=== PATIENT | female | born 1975 | race Caucasian/White ===

== ENCOUNTER 2017-02-28 10:42 | Inpatient (IN) | payer BC ==
[2017-02-28] MEDS ORDERED: PROVENTIL IH ONE (11:50)
[2017-02-28] MEDS ORDERED: ATROVENT IH ONE (11:50)
[2017-02-28] MEDS ORDERED: DECADRON 20 MG in NACL 0.9% 50 ML IV ONE (11:50)
--- NOTE | 2017-02-28 11:58 | Emergency Department Report ---
ED Shortness of Breath HPI - General Chief Complaint: Upper Respiratory Infection Stated Complaint: LOW O2 SAT Time Seen by Provider: 02/28/17 11:44 Source: patient, EMS Mode of arrival: Stretcher Limitations: No Limitations - History of Present Illness Initial Comments: 41 yo morbidly obese female with c/o shortness of breath for the last 2 weeks. Pt reports mainly coughing for 2 weeks and getting progressively worse to the point that she cannot eat because of the coughing. She c/o leg swelling also. In November 2016, she was given albuterol MDI by her doctor because of wheezing. MD Complaint: cough -: week(s) (2) Severity: moderate Pain Scale: 0 Consistency: constant Improves With: nothing Worsens With: nothing Associated Symptoms: other (lower extremity swelling) Treatments Prior to Arrival: oxygen - Related Data Home Oxygen Therapy: No Home Medications Medication Instructions Recorded Confirmed Last Taken Losartan [Cozaar] 12.5 mg PO QDAY 02/28/17 02/28/17 02/27/17 metFORMIN [Glucophage] 1,000 mg PO BID 02/28/17 02/28/17 02/28/17 Allergies Allergy/AdvReac Type Severity Reaction Status Date / Time No Known Allergies Allergy Verified 02/28/17 11:55 ED Review of Systems ROS: Stated complaint: LOW O2 SAT Other details as noted in HPI Constitutional: denies: chills, fever Eyes: denies: eye pain, eye discharge, vision change ENT: denies: ear pain, throat pain Respiratory: shortness of breath. denies: wheezing Cardiovascular: denies: chest pain, palpitations Endocrine: no symptoms reported Gastrointestinal: denies: abdominal pain, nausea, diarrhea Genitourinary: denies: urgency, dysuria, discharge Musculoskeletal: other (leg swelling). denies: back pain, joint swelling, arthralgia Skin: denies: rash, lesions Neurological: denies: headache, weakness, paresthesias Psychiatric: denies: anxiety, depression Hematological/Lymphatic: denies: easy bleeding, easy bruising ED Past Medical Hx - Past Medical History Previous Medical History?: Yes Hx Hypertension: Yes Hx Diabetes: Yes - Surgical History Past Surgical History?: No - Medications Home Medications: Home Medications Medication Instructions Recorded Confirmed Last Taken Type Losartan [Cozaar] 12.5 mg PO QDAY 02/28/17 02/28/17 02/27/17 History metFORMIN [Glucophage] 1,000 mg PO BID 02/28/17 02/28/17 02/28/17 History ED Physical Exam - General Limitations: No Limitations (mouth breathing), Physical Limitation (pt is morbidly,morbidly obese,difficult to hear lungs and heart sounds) General appearance: alert, in distress - Head Head exam: Present: atraumatic, normocephalic - Eye Eye exam: Present: normal appearance, EOMI. Absent: scleral icterus - ENT ENT exam: Present: mucous membranes moist - Neck Neck exam: Present: normal inspection, full ROM - Respiratory Respiratory exam: Present: normal lung sounds bilaterally - Cardiovascular Cardiovascular Exam: Present: regular rate, normal rhythm - GI/Abdominal GI/Abdominal exam: Present: soft, other (large centripital fat). Absent: distended, tenderness, guarding - Rectal Rectal exam: Present: deferred - Extremities Exam Extremities exam: Present: pedal edema (3 plus pitting edema) ED Course Vital Signs 02/28/17 11:13 Pulse Rate 97 H Respiratory 20 Rate Blood Pressure 154/99 O2 Sat by Pulse 93 Oximetry - ABG Interpretation Ph: 7.325 PCO2: 62.7 PO2: 64.1 Bicarbonate: 32.7 Interpretation: respiratory acidosis (primary uncompensated respiratory acidosis ) ED Medical Decision Making - Lab Data Result diagrams: 02/28/17 13:39 02/28/17 13:39 - Radiology Data Radiology results: report reviewed (cardiomegaly and pulmonary venous congestion , small pleural effusion), image reviewed (cxr: cardiomegaly and pulmonary venous congestion, trace pleural effusion) Critical care time in (mins) excluding proc time.: 30 Critical care attestation.: If time is entered above; I have spent that time in minutes in the direct care of this critically ill patient, excluding procedure time. victoriano Critical Care Time: 30 minutes ED Disposition Clinical Impression: Pleural effusion Dyspnea Qualifiers: Dyspnea type: dyspnea on exertion Qualified Code(s): R06.09 - Other forms of dyspnea CHF (congestive heart failure) Qualifiers: Congestive heart failure type: unspecified congestive heart failure type Congestive heart failure chronicity: acute Qualified Code(s): I50.9 - Heart failure, unspecified Obesity Qualifiers: Obesity type: due to excess calories Serious obesity comorbidity presence: with serious comorbidity Body mass index: BMI 45.0-49.9 Disposition: OP ADMIT IP TO THIS HOSP Is pt being admited?: Yes Does the pt Need Aspirin: No Condition: Serious Referrals: ELSIE JACINTO MD [Primary Care Provider] - 3-5 Days Time of Disposition: 13:16 (case reviewed with dr montoya and he will admit the pt to the hospital)
[2017-02-28 12:23] LABS: Basophils % (Auto) 0.7 % (0.0-1.8); Eosinophils % (Auto) 1.2 % (0.0-4.3); Hemoglobin 18.1 gm/dl (10.1-14.3); Mean Corpuscular HGB Conc 32 % (30-34); Mean Corpuscular Hemoglobin 29 pg (28-32); Mean Corpuscular Volume 91 fl (79-97); Platelet Count 236 K/mm3 (140-440); Red Blood Count 6.22 M/mm3 (3.65-5.03); White Blood Count 9.1 K/mm3 (4.5-11.0)
[2017-02-28 12:32] LABS: Hematocrit 56.7 % (30.3-42.9)
[2017-02-28 12:34] LABS: Anion Gap 16 mmol/L; BUN/Creatinine Ratio 14; Blood Urea Nitrogen 11 mg/dL (7-17); Carbon Dioxide 30 mmol/L (22-30); Glucose 111 mg/dL (65-100); Sodium 142 mmol/L (137-145)
[2017-02-28 12:36] LABS: Creatine Kinase MB 2.4 ng/mL (0.0-4.0)
[2017-02-28 12:38] LABS: Creatine Kinase 100 units/L (30-135)
--- NOTE | 2017-02-28 12:49 | XRay Report ---
ROUTINE CHEST, TWO VIEWS: HISTORY: Hypoxia. Moderate cardiomegaly and pulmonary venous congestion are identified. Trace pleural effusions could be present. There is no evidence for large consolidation, large pleural effusion or pneumothorax. The bony structures are intact. IMPRESSION: Cardiomegaly and pulmonary venous congestion.
[2017-02-28 13:13] LABS: ISTAT Base Excess 7; ISTAT HCO3 32.7; ISTAT PCO2 62.7 (35-45); ISTAT PH 7.325 (7.35-7.45); ISTAT PO2 64 (80-105); ISTAT SO2 90; ISTAT TCO2 35
[2017-02-28] MEDS ORDERED: LASIX IV ONE (13:15)
--- NOTE | 2017-02-28 13:21 | History and Physical Report ---
History of Present Illness Chief complaint: I cant breathe History of present illness: 41 YO Female with MO, HTN, DM, Metabolic Syndrome presents to ED for evaluation. Pt states that she has experienced nonproductive coughing, and shortness of breath for the past 2 weeks, with worsening symptoms over the past 2 days. Pt was seen and evaluated by her PCP and was found to have hypoxemic respiratory failure with oxygen saturation of 88% on room air. EMS notified and patient was transported to [facility] for further care and evaluation. Pt seen and evaluated in ED and found to have Acute REspiratory failure, and was placed on high flow supplemental oxygen, and treated with nebulizer therapy with mild improvement in symptoms. Pt denies fever, chills, CP, Palpitations, NVD, Syncope , prolonged travel/immobility, individual/family history of DVT/PE, productive cough, BRBPR, recent ill contacts, trauma, or sore throat. Past History Past Medical History: diabetes, hypertension, other (Morbid Obesity, Metabolic Syndrome) Past Surgical History: No surgical history, Other (reviewed) Social history: single. denies: smoking, alcohol abuse, prescription drug abuse Family history: no significant family history (reviewed) Medications and Allergies Allergies Allergy/AdvReac Type Severity Reaction Status Date / Time No Known Allergies Allergy Verified 02/28/17 11:55 Home Medications Medication Instructions Recorded Confirmed Last Taken Type Losartan [Cozaar] 12.5 mg PO QDAY 02/28/17 02/28/17 02/27/17 History metFORMIN [Glucophage] 1,000 mg PO BID 02/28/17 02/28/17 02/28/17 History Review of Systems Constitutional: no weight loss, no weight gain, no fever, no chills, no sweats Ears, nose, mouth and throat: no ear pain, no ear discharge, no tinnitis, no decreased hearing, no nose pain Breasts: no change in shape, no swelling, no mass Cardiovascular: shortness of breath, no chest pain, no orthopnea, no palpitations, no rapid/irregular heart beat, no edema, no syncope, no lightheadedness Respiratory: cough, no cough with sputum, no excessive sputum, no hemoptysis Gastrointestinal: no abdominal pain, no nausea, no vomiting, no diarrhea Genitourinary Female: no pelvic pain, no flank pain, no menorrhagia, no dysuria , no urinary frequency, no urgency Rectal: no pain, no incontinence, no bleeding Musculoskeletal: no neck stiffness, no neck pain, no shooting arm pain, no arm numbness/tingling, no low back pain, no shooting leg pain, no leg numbness/ tingling Integumentary: no rash, no pruritis, no redness, no sores, no wounds, no jaundice Neurological: no head injury, no transient paralysis, no paralysis, no weakness , no parathesias, no numbness, no tingling, no seizures, no syncope Psychiatric: no anxiety, no memory loss, no change in sleep habits, no sleep disturbances, no insomnia, no hypersomnia, no change in appetite, no change in libido Endocrine: no cold intolerance, no heat intolerance, no polyphagia, no excessive thirst, no polydipsia, no polyuria, no nocturia, no flushing Hematologic/Lymphatic: no easy bruising, no easy bleeding Allergic/Immunologic: no urticaria, no allergic rhinitis, no wheezing Exam - Constitutional Vitals: Temp Pulse Resp BP Pulse Ox 97 H 20 154/99 93 02/28/17 11:13 02/28/17 11:13 02/28/17 11:13 02/28/17 11:13 General appearance: Present: mild distress, obese - EENT Eyes: Present: PERRL ENT: hearing intact, clear oral mucosa - Neck Neck: Present: supple, normal ROM - Respiratory Respiratory effort: labored Respiratory: bilateral: diminished - Cardiovascular Heart Sounds: Present: S1 & S2. Absent: rub, click - Extremities Extremities: pulses symmetrical, No edema - Abdominal General gastrointestinal: Present: soft, non-tender, non-distended, normal bowel sounds Female genitourinary: Present: normal - Integumentary Integumentary: Present: clear, warm, dry - Musculoskeletal Musculoskeletal: generalized weakness - Psychiatric Psychiatric: appropriate mood/affect, intact judgment & insight - Neurologic Neurologic: CNII-XII intact, moves all extremities Results - Labs CBC & Chem 7: 02/28/17 13:39 02/28/17 12:05 Labs: Abnormal lab results 02/28/17 02/28/17 02/28/17 Range/Units 12:05 12:05 13:12 RBC 6.22 H (3.65-5.03) M/mm3 Hgb 18.1 H (10.1-14.3) gm/dl Hct 56.7 H* (30.3-42.9) % RDW 17.0 H (13.2-15.2) % [place] % (Auto) 7.4 H (0.0-7.3) % POC ABG pH 7.325 L (7.35-7.45) POC ABG pCO2 62.7 H (35-45) POC ABG pO2 64 L (80-105) Glucose 111 H (65-100) mg/dL Assessment and Plan - Patient Problems (1) Acute respiratory failure Current Visit: Yes Status: Acute Plan to address problem: Supplemental oxygen, nebulizer therapy, aspiration precautions, pulmonary toilet , incentive spirometry, (2) Obesity hypoventilation syndrome Current Visit: Yes Status: Acute Plan to address problem: supportive care, supplemental oxygen, NIPPV as clinically indicated, pt counseled regarding increased physical activity, balanced diet, and bariatric surgery (3) HTN (hypertension) Current Visit: Yes Status: Acute Plan to address problem: monitor bp q shift, IV hydralazine prn for systolic above 165 (4) Diabetes Current Visit: Yes Status: Acute Plan to address problem: ADA diet, insulin, accu check, (5) CHF (congestive heart failure) Current Visit: Yes Status: Suspected Qualifiers: Congestive heart failure type: systolic Congestive heart failure chronicity : acute Qualified Code(s): I50.21 - Acute systolic (congestive) heart failure Plan to address problem: Serial cardiac enzymes, ekg, d dimer, remote telemetry, fluid restriction, monitor uop q shift, (6) DVT prophylaxis Current Visit: Yes Status: Acute
[2017-02-28] MEDS ORDERED: ZOFRAN IV PRN (13:32)
[2017-02-28] MEDS ORDERED: DULCOLAX PR PRN (13:32)
[2017-02-28] MEDS ORDERED: PROVENTIL IH PRN (13:32)
[2017-02-28] MEDS ORDERED: MILK OF MAGNESIA PO PRN (13:32)
[2017-02-28] MEDS ORDERED: SODIUM CHLORIDE FLUSH SYRINGE 10 ML IV PRN (13:34)
[2017-02-28] MEDS ORDERED: D50W (25GM) Syringe IV PRN (13:36)
[2017-02-28 13:51] LABS: Basophils % (Auto) 0.6 % (0.0-1.8); Eosinophils % (Auto) 1.2 % (0.0-4.3); Mean Corpuscular HGB Conc 32 % (30-34); Mean Corpuscular Hemoglobin 29 pg (28-32); Mean Corpuscular Volume 91 fl (79-97); Platelet Count 227 K/mm3 (140-440); Red Blood Count 6.11 M/mm3 (3.65-5.03); Red Cell Distribution Width 16.7 % (13.2-15.2); White Blood Count 9.1 K/mm3 (4.5-11.0)
[2017-02-28 14:13] LABS: Anion Gap 16 mmol/L; BUN/Creatinine Ratio 16; Blood Urea Nitrogen 11 mg/dL (7-17); Calcium 9.2 mg/dL (8.4-10.2); Carbon Dioxide 30 mmol/L (22-30); Glucose 109 mg/dL (65-100); Potassium 4.1 mmol/L (3.6-5.0); Sodium 143 mmol/L (137-145)
[2017-02-28 14:25] LABS: Hematocrit 55.4 % (30.3-42.9)
[2017-02-28] MEDS ORDERED: LASIX ONE (15:17)
[2017-02-28] MEDS: NOVOLOG SUB-Q SCH ×2 (17:50→22:29)
[2017-02-28] MEDS: APRESOLINE IV PRN (20:52)
[2017-02-28] MEDS: TYLENOL PO PRN (20:52)
--- NOTE | 2017-02-28 22:18 | Cat Scan Report ---
FINAL REPORT PROCEDURE: CT HEAD/BRAIN WO CON TECHNIQUE: Computerized tomography of the head was performed without contrast material. HISTORY: hEADACHE COMPARISON: No prior studies are available for comparison. FINDINGS: Skull and scalp: Normal. Paranasal sinuses: Normal. Ventricles and subarachnoid spaces: Normal. Cerebrum: No evidence of hemorrhage, acute infarction or mass . Cerebellum and brainstem: No evidence of hemorrhage, acute infarction or mass. Vasculature: Normal. Comments: None. IMPRESSION: Normal Examination
[2017-03-01] MEDS: APRESOLINE IV PRN (04:29)
[2017-03-01] MEDS ORDERED: DEEP SEA NS PRN (04:39)
[2017-03-01] MEDS: NOVOLOG SUB-Q SCH ×4 (08:34→22:58)
[2017-03-01] MEDS ORDERED: NACL ONE (09:24)
--- NOTE | 2017-03-01 10:16 | Cat Scan Report ---
CTA CHEST: HISTORY: Hypoxia. COMPARISON: none. TECHNIQUE: Helical CT in 1.25mm intervals following IV contrast. Pulmonary embolus protocol. Sagittal and coronal reformatted images. Rotational MIP images. FINDINGS: Contrast bolus is satisfactory. No pulmonary embolus is identified. Thyroid gland: Normal. Tracheobronchial tree: Normal. Esophagus: Normal. Heart: Mild cardiomegaly and mild central pulmonary venous congestion are identified. Pericardium: Normal. Mediastinum: Normal. Lung Bae: Within normal limits. Minor segmental atelectasis in the left lower lobe is noted. Pleural Spaces: Normal. Musculoskeletal: Normal. IMPRESSION: No evidence for pulmonary embolus. Mild cardiomegaly and pulmonary venous congestion but no CHF
[2017-03-01] MEDS: COZAAR PO SCH (10:29)
[2017-03-01] MEDS: LASIX IV SCH (11:52)
--- NOTE | 2017-03-01 12:18 | Consultation ---
History of Present Illness Consult date: 03/01/17 Requesting physician: ARIANNA PETER Reason for consult: hypoxemia History of present illness: Morbidly obese 41 y/o admitted with hypoxemia. Came to ED to be evaluated for cough. Per patient followed at [facility]. Was given an asthma pump earlier this year which has been using more frequently. patient currently on ventimask. Has never been tested for JAS. has several risk factors. Past History Past Medical History: diabetes, hypertension, other (Morbid Obesity, Metabolic Syndrome) Past Surgical History: No surgical history, Other (reviewed) Social history: single. denies: smoking, alcohol abuse, prescription drug abuse Family history: no significant family history (reviewed) Medications and Allergies Allergies Allergy/AdvReac Type Severity Reaction Status Date / Time No Known Allergies Allergy Verified 02/28/17 11:55 Home Medications Medication Instructions Recorded Confirmed Last Taken Type Losartan [Cozaar] 12.5 mg PO QDAY 02/28/17 02/28/17 02/27/17 History metFORMIN [Glucophage] 1,000 mg PO BID 02/28/17 02/28/17 02/28/17 History Active Meds: Active Medications Acetaminophen (Tylenol) 650 mg PO Q4H PRN PRN Reason: Pain MILD(1-3)/Fever >100.5/THOMPSON Last Admin: 02/28/17 20:52 Dose: 650 mg Albuterol (Proventil) 2.5 mg IH Q4HRT PRN PRN Reason: Shortness Of Breath Bisacodyl (Dulcolax) 10 mg [place] QDAY PRN PRN Reason: Constipation unrelieved by MOM Dextrose (D50w (25gm) Syringe) 50 ml IV PRN PRN PRN Reason: Hypoglycemia Furosemide (Lasix) 40 mg IV QDAY [facility] Last Admin: 03/01/17 11:52 Dose: 40 mg Hydralazine HCl (Apresoline) 10 mg IV Q6HR PRN PRN Reason: Blood Pressure Last Admin: 03/01/17 04:29 Dose: 10 mg Insulin Aspart (Novolog) 0 units SUB-Q ACHS NEIL PRN Reason: Protocol Last Admin: 03/01/17 11:52 Dose: 2 units Losartan Potassium (Cozaar) 12.5 mg PO QDAY [facility] Last Admin: 03/01/17 10:29 Dose: 12.5 mg Magnesium Hydroxide (Milk Of Magnesia) 30 ml PO Q4H PRN PRN Reason: Constipation Ondansetron HCl (Zofran) 4 mg IV Q8H PRN PRN Reason: N/V unrelieved by Reglan Sodium Chloride (Sodium Chloride Flush Syringe 10 Ml) 10 ml IV PRN PRN PRN Reason: LINE FLUSH Sodium Chloride (Deep Sea) 2 spray NS PRN PRN PRN Reason: Dry Nasal Passages Review of Systems All systems: negative Physical Examination Vital signs: Vital Signs Pulse Resp BP Pulse Ox 97 H 20 154/99 93 02/28/17 11:13 02/28/17 11:13 02/28/17 11:13 02/28/17 11:13 General appearance: no acute distress, alert, other (morbidly obese) Eyes: non-icteric ENT: oropharynx moist Neck: supple Effort: normal Ascultation: Bilateral: diminished breath sounds Percussion: Bilateral: not dull Tactile fremitus: Bilateral: normal Cardiovascular: regular rate and rhythm Gastrointestinal: normoactive bowel sounds, soft, other (obese) Extremities: edema normal mental status, non-focal exam mood appropriate, affect normal Results - Laboratory Findings CBC and BMP: 03/02/17 05:38 03/02/17 05:38 ABG POC ABG pH 7.325 (7.35-7.45) L 02/28/17 13:12 POC ABG pCO2 62.7 (35-45) H 02/28/17 13:12 POC ABG pO2 64 (80-105) L 02/28/17 13:12 POC ABG HCO3 32.7 02/28/17 13:12 POC ABG Total CO2 35 02/28/17 13:12 POC ABG O2 Sat 90 02/28/17 13:12 PT/INR, D-dimer D-Dimer 265.06 ng/mlDDU (0-234) H 02/28/17 13:35 Abnormal lab findings: Abnormal Labs 02/28/17 02/28/17 02/28/17 12:05 12:05 13:12 RBC 6.22 H Hgb 18.1 H Hct 56.7 H* RDW 17.0 H [place] % (Auto) 7.4 H Seg Neutrophils % D-Dimer POC ABG pH 7.325 L POC ABG pCO2 62.7 H POC ABG pO2 64 L Glucose 111 H POC Glucose 02/28/17 02/28/17 02/28/17 13:35 13:39 13:39 RBC 6.11 H Hgb 18.0 H Hct 55.4 H* RDW 16.7 H [place] % (Auto) Seg Neutrophils % 70.5 H D-Dimer 265.06 H POC ABG pH POC ABG pCO2 POC ABG pO2 Glucose 109 H POC Glucose 02/28/17 02/28/17 02/28/17 14:12 16:58 21:34 RBC Hgb Hct RDW [place] % (Auto) Seg Neutrophils % D-Dimer POC ABG pH POC ABG pCO2 POC ABG pO2 Glucose POC Glucose 110 H 152 H 286 H 03/01/17 03/01/17 03/01/17 05:06 06:39 11:40 RBC Hgb Hct RDW [place] % (Auto) Seg Neutrophils % D-Dimer POC ABG pH POC ABG pCO2 POC ABG pO2 Glucose POC Glucose 142 H 142 H 171 H - Diagnostic Findings Chest x-ray: image reviewed CT scan - chest: image reviewed Assessment and Plan 41 y/o female with hypoxic respiratory failure, morbidly obese and probable pulmonary hypertension from untreated sleep apnea. 1. Needs outpatient PSG, will arrange follow up for our office with Dr. Soler 2. Also needs full PFT with Lung Volumes and DLCO 3. Wean mask for sats greater than 88% 4. BP control and afterload reduction 5. Agree with lasix therapy. 6. continue PRN nebs.
--- NOTE | 2017-03-01 16:03 | Progress Note ---
Assessment and Plan Assessment and plan: (1) Acute respiratory failure - Oxygen support, nebulizer treatment - Pulmonary consulted - CTA negative for PE, shows chest congestion (2) Obesity hypoventilation syndrome - Supportive care, advised for weight loss, bariatric surgery (3) HTN (hypertension) - When necessary hydralazine (4) Diabetes - ADA diet, insulin, accu check, (5) CHF (congestive heart failure) - EF is normal - Dilated right atrial and right ventricular - On IV Lasix (6) DVT prophylaxis - on lovenox Disposition - Patient will be managed overnight and, discharged tomorrow History Interval history: Patient was seen and evaluated this morning, patient is on nonrebreather mask. No chest pain. Hospitalist Physical - Physical exam Narrative exam: Not in cardiopulmonary distress. The patient is morbidly obese. Vital signs as documented. Head exam is unremarkable. No scleral icterus . Neck is without jugular venous distension, thyromegaly, or carotid bruits. Lungs are clear to auscultation. Cardiac exam reveals regular rate and Rhythm. First and second heart sounds normal. No murmurs, rubs or gallops. Abdominal exam reveals normal bowel sounds, no masses, no organomegaly and no aortic enlargement. Extremities are nonedematous and both femoral and pedal pulses are normal. [employer]: Alert and oriented 3. No focal weakness. - Constitutional Vitals: Temp Pulse Resp BP Pulse Ox 98.3 F 97 H 24 118/68 98 03/01/17 11:37 03/01/17 11:37 03/01/17 11:37 03/01/17 11:37 03/01/17 11:37 General appearance: Present: mild distress, obese Results - Labs CBC & Chem 7: 02/28/17 13:39 02/28/17 13:39 Labs: Laboratory Last Values WBC 9.1 K/mm3 (4.5-11.0) 02/28/17 13:39 RBC 6.11 M/mm3 (3.65-5.03) H 02/28/17 13:39 Hgb 18.0 gm/dl (10.1-14.3) H 02/28/17 13:39 Hct 55.4 % (30.3-42.9) H* 02/28/17 13:39 MCV 91 fl (79-97) 02/28/17 13:39 MCH 29 pg (28-32) 02/28/17 13:39 MCHC 32 % (30-34) 02/28/17 13:39 RDW 16.7 % (13.2-15.2) H 02/28/17 13:39 Plt Count 227 K/mm3 (140-440) 02/28/17 13:39 Lymph % (Auto) 21.7 % (13.4-35.0) 02/28/17 13:39 [place] % (Auto) 6.0 % (0.0-7.3) 02/28/17 13:39 Eos % (Auto) 1.2 % (0.0-4.3) 02/28/17 13:39 Baso % (Auto) 0.6 % (0.0-1.8) 02/28/17 13:39 Lymph # 2.0 K/mm3 (1.2-5.4) 02/28/17 13:39 [place] # 0.5 K/mm3 (0.0-0.8) 02/28/17 13:39 Eos # 0.1 K/mm3 (0.0-0.4) 02/28/17 13:39 Baso # 0.1 K/mm3 (0.0-0.1) 02/28/17 13:39 Seg Neutrophils % 70.5 % (40.0-70.0) H 02/28/17 13:39 Seg Neutrophils # 6.4 K/mm3 (1.8-7.7) 02/28/17 13:39 D-Dimer 265.06 ng/mlDDU (0-234) H 02/28/17 13:35 POC ABG pH 7.325 (7.35-7.45) L 02/28/17 13:12 POC ABG pCO2 62.7 (35-45) H 02/28/17 13:12 POC ABG pO2 64 (80-105) L 02/28/17 13:12 POC ABG HCO3 32.7 02/28/17 13:12 POC ABG Total CO2 35 02/28/17 13:12 POC ABG O2 Sat 90 02/28/17 13:12 POC ABG Base Excess 7 02/28/17 13:12 FiO2 32 % 02/28/17 13:12 Sodium 143 mmol/L (137-145) 02/28/17 13:39 Potassium 4.1 mmol/L (3.6-5.0) 02/28/17 13:39 Chloride 101.0 mmol/L (98-107) 02/28/17 13:39 Carbon Dioxide 30 mmol/L (22-30) 02/28/17 13:39 Anion Gap 16 mmol/L 02/28/17 13:39 BUN 11 mg/dL (7-17) 02/28/17 13:39 Creatinine 0.7 mg/dL (0.7-1.2) 02/28/17 13:39 Estimated GFR > 60 ml/min 02/28/17 13:39 BUN/Creatinine Ratio 16 % 02/28/17 13:39 Glucose 109 mg/dL (65-100) H 02/28/17 13:39 POC Glucose 171 (70-105) H 03/01/17 11:40 Calcium 9.2 mg/dL (8.4-10.2) 02/28/17 13:39 Total Creatine Kinase 100 units/L (30-135) 02/28/17 12:05 CK-MB (CK-2) 2.4 ng/mL (0.0-4.0) 02/28/17 12:05 CK-MB (CK-2) Rel Index 2.4 (0-4) 02/28/17 12:05 Troponin T < 0.010 ng/mL (0.00-0.029) 02/28/17 19:35 NT-Pro-B Natriuret Pep 412.9 pg/mL (0-450) 02/28/17 12:05 TSH 1.810 mlU/mL (0.270-4.200) 02/28/17 12:13 Free T4 1.18 ng/dL (0.76-1.46) 02/28/17 12:13 HCG, Qual Negative (Negative) 02/28/17 12:00 - Imaging and Cardiology CT scan - chest: report reviewed (negative for PE) CT Scan - head: report reviewed (normal)
[2017-03-02] MEDS: TYLENOL PO PRN ×2 (03:35→09:37)
[2017-03-02 06:38] LABS: Basophils % (Auto) 0.2 % (0.0-1.8); Eosinophils % (Auto) 0.3 % (0.0-4.3); Hematocrit 54.1 % (30.3-42.9); Hemoglobin 17.3 gm/dl (10.1-14.3); Mean Corpuscular HGB Conc 32 % (30-34); Mean Corpuscular Hemoglobin 29 pg (28-32); Mean Corpuscular Volume 92 fl (79-97); Platelet Count 232 K/mm3 (140-440); Red Blood Count 5.89 M/mm3 (3.65-5.03); Red Cell Distribution Width 17.4 % (13.2-15.2); White Blood Count 10.3 K/mm3 (4.5-11.0)
[2017-03-02 06:46] LABS: Anion Gap 15 mmol/L; BUN/Creatinine Ratio 21; Blood Urea Nitrogen 15 mg/dL (7-17); Calcium 8.5 mg/dL (8.4-10.2); Carbon Dioxide 33 mmol/L (22-30); Chloride 101.3 mmol/L (98-107); Glucose 121 mg/dL (65-100); Potassium 4.3 mmol/L (3.6-5.0); Sodium 145 mmol/L (137-145)
[2017-03-02] MEDS: NOVOLOG SUB-Q SCH ×4 (07:36→22:53)
[2017-03-02] MEDS: COZAAR PO SCH (09:17)
[2017-03-02] MEDS: LASIX IV SCH ×2 (09:17→19:03)
--- NOTE | 2017-03-02 13:05 | Progress Note ---
Assessment and Plan 41 y/o female with hypoxic respiratory failure, morbidly obese and probable pulmonary hypertension from untreated sleep apnea. No new recs for today. 1. Needs outpatient PSG, will arrange follow up for our office with Dr. Soler 2. Also needs full PFT with Lung Volumes and DLCO 3. Wean mask for sats greater than 88% 4. BP control and afterload reduction 5. Agree with lasix therapy. 6. continue PRN nebs. Subjective Date of service: 03/02/17 Interval history: No acute events. Breathing feels the same. Has a slight headache today. Objective Vital Signs - 12hr 03/02/17 03/02/17 03/02/17 03:27 03:35 07:00 Temperature 98.3 F Pulse Rate 92 H Respiratory 18 24 18 Rate Blood Pressure 142/68 O2 Sat by Pulse 98 Oximetry 03/02/17 03/02/17 03/02/17 09:17 09:37 10:00 Temperature Pulse Rate Respiratory 20 Rate Blood Pressure 110/41 O2 Sat by Pulse 95 Oximetry 03/02/17 10:37 Temperature Pulse Rate Respiratory 20 Rate Blood Pressure O2 Sat by Pulse Oximetry Constitutional: no acute distress, alert, other (morbidly obese) Eyes: non-icteric ENT: oropharynx moist Neck: supple Effort: normal Ascultation: Bilateral: diminished breath sounds Percussion: Bilateral: not dull Tactile fremitus: Bilateral: normal Cardiovascular: regular rate and rhythm Gastrointestinal: normoactive bowel sounds, soft, other (obese) Extremities: edema Neurologic: normal mental status, non-focal exam Psychiatric: mood appropriate, affect normal CBC and BMP: 03/02/17 05:38 03/02/17 05:38 ABG, PT/INR, D-dimer: ABG POC ABG pH 7.325 (7.35-7.45) L 02/28/17 13:12 POC ABG pCO2 62.7 (35-45) H 02/28/17 13:12 POC ABG pO2 64 (80-105) L 02/28/17 13:12 POC ABG HCO3 32.7 02/28/17 13:12 POC ABG Total CO2 35 02/28/17 13:12 POC ABG O2 Sat 90 02/28/17 13:12 PT/INR, D-dimer D-Dimer 265.06 ng/mlDDU (0-234) H 02/28/17 13:35 Abnormal lab findings: Abnormal Labs 02/28/17 02/28/17 02/28/17 12:05 12:05 13:12 RBC 6.22 H Hgb 18.1 H Hct 56.7 H* RDW 17.0 H [place] % (Auto) 7.4 H Seg Neutrophils % D-Dimer POC ABG pH 7.325 L POC ABG pCO2 62.7 H POC ABG pO2 64 L Carbon Dioxide Glucose 111 H POC Glucose 02/28/17 02/28/17 02/28/17 13:35 13:39 13:39 RBC 6.11 H Hgb 18.0 H Hct 55.4 H* RDW 16.7 H [place] % (Auto) Seg Neutrophils % 70.5 H D-Dimer 265.06 H POC ABG pH POC ABG pCO2 POC ABG pO2 Carbon Dioxide Glucose 109 H POC Glucose 02/28/17 02/28/17 02/28/17 14:12 16:58 21:34 RBC Hgb Hct RDW [place] % (Auto) Seg Neutrophils % D-Dimer POC ABG pH POC ABG pCO2 POC ABG pO2 Carbon Dioxide Glucose POC Glucose 110 H 152 H 286 H 03/01/17 03/01/17 03/01/17 05:06 06:39 11:40 RBC Hgb Hct RDW [place] % (Auto) Seg Neutrophils % D-Dimer POC ABG pH POC ABG pCO2 POC ABG pO2 Carbon Dioxide Glucose POC Glucose 142 H 142 H 171 H 03/01/17 03/02/17 03/02/17 19:48 05:15 05:38 RBC 5.89 H Hgb 17.3 H Hct 54.1 H RDW 17.4 H [place] % (Auto) 7.9 H Seg Neutrophils % 70.8 H D-Dimer POC ABG pH POC ABG pCO2 POC ABG pO2 Carbon Dioxide Glucose POC Glucose 216 H 106 H 03/02/17 03/02/17 05:38 11:32 RBC Hgb Hct RDW [place] % (Auto) Seg Neutrophils % D-Dimer POC ABG pH POC ABG pCO2 POC ABG pO2 Carbon Dioxide 33 H Glucose 121 H POC Glucose 120 H
--- NOTE | 2017-03-02 16:38 | Progress Note ---
Assessment and Plan Assessment and plan: (1) Acute respiratory failure - Oxygen support, nebulizer treatment, lasix - Pulmonary consulted - CTA negative for PE, shows chest congestion - Patient was desaturating when she is off the Ventimask, we went her on intranasal oxygen, if patient is saturating above 88% we will discharge her. (2) Obesity hypoventilation syndrome - Supportive care, advised for weight loss, bariatric surgery (3) HTN (hypertension) - When necessary hydralazine (4) Diabetes - ADA diet, insulin, accu check, (5) CHF (congestive heart failure) - EF is normal - Dilated right atrial and right ventricular - On IV Lasix (6) DVT prophylaxis - on lovenox Disposition - Patient will be managed overnight and, discharged tomorrow with home o2. History Interval history: Patient was seen and evaluated this morning, patient is on Ventimask. When she is off the ventimask she was desaturating to 72% when moving, and in the low 80' s when sitting. Hospitalist Physical - Physical exam Narrative exam: Not in cardiopulmonary distress. The patient is morbidly obese. Vital signs as documented. Head exam is unremarkable. No scleral icterus . Neck is without jugular venous distension, thyromegaly, or carotid bruits. Lungs are clear to auscultation. Cardiac exam reveals regular rate and Rhythm. First and second heart sounds normal. No murmurs, rubs or gallops. Abdominal exam reveals normal bowel sounds, no masses, no organomegaly and no aortic enlargement. Extremities are nonedematous and both femoral and pedal pulses are normal. 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 No focal weakness. - Constitutional Vitals: Temp Pulse Resp BP Pulse Ox 98.5 F 90 20 134/82 94 03/02/17 15:16 03/02/17 15:16 03/02/17 15:16 03/02/17 15:16 03/02/17 15:16 General appearance: Present: mild distress, obese Results - Labs CBC & Chem 7: 03/02/17 05:38 03/02/17 05:38 Labs: Laboratory Last Values WBC 10.3 K/mm3 (4.5-11.0) 03/02/17 05:38 RBC 5.89 M/mm3 (3.65-5.03) H 03/02/17 05:38 Hgb 17.3 gm/dl (10.1-14.3) H 03/02/17 05:38 Hct 54.1 % (30.3-42.9) H 03/02/17 05:38 MCV 92 fl (79-97) 03/02/17 05:38 MCH 29 pg (28-32) 03/02/17 05:38 MCHC 32 % (30-34) 03/02/17 05:38 RDW 17.4 % (13.2-15.2) H 03/02/17 05:38 Plt Count 232 K/mm3 (140-440) 03/02/17 05:38 Lymph % (Auto) 20.8 % (13.4-35.0) 03/02/17 05:38 [place] % (Auto) 7.9 % (0.0-7.3) H 03/02/17 05:38 Eos % (Auto) 0.3 % (0.0-4.3) 03/02/17 05:38 Baso % (Auto) 0.2 % (0.0-1.8) 03/02/17 05:38 Lymph # 2.1 K/mm3 (1.2-5.4) 03/02/17 05:38 [place] # 0.8 K/mm3 (0.0-0.8) 03/02/17 05:38 Eos # 0.0 K/mm3 (0.0-0.4) 03/02/17 05:38 Baso # 0.0 K/mm3 (0.0-0.1) 03/02/17 05:38 Seg Neutrophils % 70.8 % (40.0-70.0) H 03/02/17 05:38 Seg Neutrophils # 7.3 K/mm3 (1.8-7.7) 03/02/17 05:38 D-Dimer 265.06 ng/mlDDU (0-234) H 02/28/17 13:35 POC ABG pH 7.325 (7.35-7.45) L 02/28/17 13:12 POC ABG pCO2 62.7 (35-45) H 02/28/17 13:12 POC ABG pO2 64 (80-105) L 02/28/17 13:12 POC ABG HCO3 32.7 02/28/17 13:12 POC ABG Total CO2 35 02/28/17 13:12 POC ABG O2 Sat 90 02/28/17 13:12 POC ABG Base Excess 7 02/28/17 13:12 FiO2 32 % 02/28/17 13:12 Sodium 145 mmol/L (137-145) 03/02/17 05:38 Potassium 4.3 mmol/L (3.6-5.0) 03/02/17 05:38 Chloride 101.3 mmol/L (98-107) 03/02/17 05:38 Carbon Dioxide 33 mmol/L (22-30) H 03/02/17 05:38 Anion Gap 15 mmol/L 03/02/17 05:38 BUN 15 mg/dL (7-17) 03/02/17 05:38 Creatinine 0.7 mg/dL (0.7-1.2) 03/02/17 05:38 Estimated GFR > 60 ml/min 03/02/17 05:38 BUN/Creatinine Ratio 21 % 03/02/17 05:38 Glucose 121 mg/dL (65-100) H 03/02/17 05:38 POC Glucose 115 (70-105) H 03/02/17 16:29 Calcium 8.5 mg/dL (8.4-10.2) 03/02/17 05:38 Total Creatine Kinase 100 units/L (30-135) 02/28/17 12:05 CK-MB (CK-2) 2.4 ng/mL (0.0-4.0) 02/28/17 12:05 CK-MB (CK-2) Rel Index 2.4 (0-4) 02/28/17 12:05 Troponin T < 0.010 ng/mL (0.00-0.029) 02/28/17 19:35 NT-Pro-B Natriuret Pep 412.9 pg/mL (0-450) 02/28/17 12:05 TSH 1.810 mlU/mL (0.270-4.200) 02/28/17 12:13 Free T4 1.18 ng/dL (0.76-1.46) 02/28/17 12:13 HCG, Qual Negative (Negative) 02/28/17 12:00
[2017-03-03 05:26] LABS: Anion Gap 15 mmol/L; BUN/Creatinine Ratio 21; Blood Urea Nitrogen 15 mg/dL (7-17); Calcium 8.9 mg/dL (8.4-10.2); Carbon Dioxide 37 mmol/L (22-30); Chloride 96.7 mmol/L (98-107); Glucose 123 mg/dL (65-100); Potassium 4.2 mmol/L (3.6-5.0); Sodium 144 mmol/L (137-145)
[2017-03-03] MEDS: LASIX IV SCH ×2 (06:16→17:24)
[2017-03-03] MEDS: NOVOLOG SUB-Q SCH ×3 (07:30→17:46)
--- NOTE | 2017-03-03 08:09 | Discharge Summary ---
Providers - Providers Date of Admission: 02/28/17 13:32 Date of discharge: 03/03/17 Attending physician: ARIANNA PETER MD 02/28/17 Consult to Cardiac Rehabilitation [CONS] Routine Reason For Exam: Phase I 03/01/17 07:29 Consult to Physician [CONS] Routine Consulting Provider: RAZIA ROGER Reason For Exam: respiratory failure, [facility] Place consult to:: Pulmonary Notified:: yes Phone number called:: [phone] Was contact made?: Yes Primary care physician: ELSIE JACINTO Hospitalization Reason for admission: acute hypoxic respiratory failure, obesity hypoventilation syndrome Condition: Serious Pertinent studies: CTA chest negative for PE Echo pulmonary hypertension Hospital course: 41 YO Female with MO, HTN, DM, Metabolic Syndrome presents to ED for evaluation. Pt states that she has experienced nonproductive coughing, and shortness of breath for the past 2 weeks, with worsening symptoms over the past 2 days. Pt was seen and evaluated by her PCP and was found to have hypoxemic respiratory failure with oxygen saturation of 88% on room air. EMS notified and patient was transported to [facility] for further care and evaluation. Pt seen and evaluated in ED and found to have Acute REspiratory failure, and was placed on high flow supplemental oxygen, and treated with nebulizer therapy with mild improvement in symptoms. Pt denies fever, chills, CP, Palpitations, NVD, Syncope , prolonged travel/immobility, individual/family history of DVT/PE, productive cough, BRBPR, recent ill contacts, trauma, or sore throat. Patient was admitted and she was desaturating and was on non-rebreather mask. Patient was managed wit lasix with clive improvement. Pulmonary was consulted and recommmend to discharge the patient with home O2 with a goal of 88 % saturation and have follow up with pulmonary as an O/P for sleep study and further management. Patient was discharged home with home O2 amd lasix. patient was saturating in the low90's with 3-4 Litres of O2. patient was hemodynamically stable at the time of discharge. Disposition: - TO HOME OR SELFCARE Time spent for discharge: 31 minutes - Discharge Diagnoses (1) Acute respiratory failure Status: Acute (2) Dyspnea Status: Acute Qualifiers: Dyspnea type: dyspnea on exertion Qualified Code(s): R06.09 - Other forms of dyspnea (3) HTN (hypertension) Status: Acute (4) Obesity Status: Acute Qualifiers: Obesity type: due to excess calories Serious obesity comorbidity presence: with serious comorbidity Body mass index: BMI 45.0-49.9 (5) Obesity hypoventilation syndrome Status: Acute Core Measure Documentation - Palliative Care Palliative Care/ Comfort Measures: Not Applicable - Core Measures Any of the following diagnoses?: none Exam - Physical Exam Narrative exam: Not in cardiopulmonary distress. The patient is morbidly obese. Vital signs as documented. Head exam is unremarkable. No scleral icterus . Neck is without jugular venous distension, thyromegaly, or carotid bruits. Lungs are clear to auscultation. Cardiac exam reveals regular rate and Rhythm. First and second heart sounds normal. No murmurs, rubs or gallops. Abdominal exam reveals normal bowel sounds, no masses, no organomegaly and no aortic enlargement. Extremities are nonedematous and both femoral and pedal pulses are normal. 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 No focal weakness. - Constitutional Vitals: Temp Pulse Resp BP Pulse Ox 98.1 F 94 H 22 127/66 94 03/03/17 05:03 03/03/17 05:03 03/03/17 05:03 03/03/17 05:03 03/03/17 05:03 Plan Activity: no restrictions Weight Bearing Status: Full Weight Bearing Diet: low fat, low cholesterol, low salt, diabetic Follow up with: ELSIE JACINTO MD [Primary Care Provider] - 7 Days GRICEL DUMONT MD [Staff Physician] - 7 Days Forms: Work/School Release Form Prescriptions: Furosemide [Lasix] 40 mg PO DAILY #30 tablet Other Discharge Orders: Oxygen (Amb) Location: Determined By Patient
--- NOTE | 2017-03-03 09:20 | Progress Note ---
Assessment and Plan 41 y/o female with hypoxic respiratory failure, morbidly obese and probable pulmonary hypertension from untreated sleep apnea. Needs 6 minute walk to assess oxygen need. Same follow up as outlined below. 1. Needs outpatient PSG, will arrange follow up for our office with Dr. Soler 2. Also needs full PFT with Lung Volumes and DLCO 3. Wean mask for sats greater than 88% 4. BP control and afterload reduction 5. Agree with lasix therapy. 6. continue PRN nebs. Subjective Date of service: 03/03/17 Interval history: Lasix at BID but I/O not accurate/strict. IMS with discharge in place. Last documented sat on 50% venti was 92 Objective Vital Signs - 12hr 03/02/17 03/03/17 03/03/17 22:00 00:01 02:35 Temperature Pulse Rate 104 H 95 H Pulse Rate [ 98 H Left Radial] Respiratory 24 20 Rate Blood Pressure O2 Sat by Pulse 95 90 94 Oximetry 03/03/17 05:03 Temperature 98.1 F Pulse Rate 94 H Pulse Rate [ Left Radial] Respiratory 22 Rate Blood Pressure 127/66 O2 Sat by Pulse 94 Oximetry Constitutional: no acute distress, alert, other (morbidly obese) Eyes: non-icteric ENT: oropharynx moist Neck: supple Effort: normal Ascultation: Bilateral: diminished breath sounds Percussion: Bilateral: not dull Tactile fremitus: Bilateral: normal Cardiovascular: regular rate and rhythm Gastrointestinal: normoactive bowel sounds, soft, other (obese) Extremities: edema Neurologic: normal mental status, non-focal exam Psychiatric: mood appropriate, affect normal CBC and BMP: 03/02/17 05:38 03/03/17 04:02 ABG, PT/INR, D-dimer: ABG POC ABG pH 7.325 (7.35-7.45) L 02/28/17 13:12 POC ABG pCO2 62.7 (35-45) H 02/28/17 13:12 POC ABG pO2 64 (80-105) L 02/28/17 13:12 POC ABG HCO3 32.7 02/28/17 13:12 POC ABG Total CO2 35 02/28/17 13:12 POC ABG O2 Sat 90 02/28/17 13:12 PT/INR, D-dimer D-Dimer 265.06 ng/mlDDU (0-234) H 02/28/17 13:35 Abnormal lab findings: Abnormal Labs 02/28/17 02/28/17 02/28/17 12:05 12:05 13:12 RBC 6.22 H Hgb 18.1 H Hct 56.7 H* RDW 17.0 H [place] % (Auto) 7.4 H Seg Neutrophils % D-Dimer POC ABG pH 7.325 L POC ABG pCO2 62.7 H POC ABG pO2 64 L Chloride Carbon Dioxide Glucose 111 H POC Glucose 02/28/17 02/28/17 02/28/17 13:35 13:39 13:39 RBC 6.11 H Hgb 18.0 H Hct 55.4 H* RDW 16.7 H [place] % (Auto) Seg Neutrophils % 70.5 H D-Dimer 265.06 H POC ABG pH POC ABG pCO2 POC ABG pO2 Chloride Carbon Dioxide Glucose 109 H POC Glucose 02/28/17 02/28/17 02/28/17 14:12 16:58 21:34 RBC Hgb Hct RDW [place] % (Auto) Seg Neutrophils % D-Dimer POC ABG pH POC ABG pCO2 POC ABG pO2 Chloride Carbon Dioxide Glucose POC Glucose 110 H 152 H 286 H 03/01/17 03/01/17 03/01/17 05:06 06:39 11:40 RBC Hgb Hct RDW [place] % (Auto) Seg Neutrophils % D-Dimer POC ABG pH POC ABG pCO2 POC ABG pO2 Chloride Carbon Dioxide Glucose POC Glucose 142 H 142 H 171 H 03/01/17 03/02/17 03/02/17 19:48 05:15 05:38 RBC 5.89 H Hgb 17.3 H Hct 54.1 H RDW 17.4 H [place] % (Auto) 7.9 H Seg Neutrophils % 70.8 H D-Dimer POC ABG pH POC ABG pCO2 POC ABG pO2 Chloride Carbon Dioxide Glucose POC Glucose 216 H 106 H 03/02/17 03/02/17 03/02/17 05:38 11:32 16:29 RBC Hgb Hct RDW [place] % (Auto) Seg Neutrophils % D-Dimer POC ABG pH POC ABG pCO2 POC ABG pO2 Chloride Carbon Dioxide 33 H Glucose 121 H POC Glucose 120 H 115 H 03/03/17 04:02 RBC Hgb Hct RDW [place] % (Auto) Seg Neutrophils % D-Dimer POC ABG pH POC ABG pCO2 POC ABG pO2 Chloride 96.7 L Carbon Dioxide 37 H Glucose 123 H POC Glucose
[2017-03-03] MEDS: COZAAR PO SCH (09:46)
[2017-03-03 18:37] VITALS: BP 134/74
== END 2017-03-03 18:15 | disposition home or self-care (01) | DRG 291 ==
LOC: ED 10:42 → 3A 13:32
PROVIDERS: ADMIT Internal Medicine; ATTEND Internal Medicine
PROC: 4A033R1 Measurement of Arterial Saturation, Peripheral, Percutaneous Approach (ICD-10-PCS; 2017-02-28)
PROC: 5A09357 Assistance with Respiratory Ventilation, Less than 24 Consecutive Hours, Continuous Positive Airway Pressure (ICD-10-PCS; principal; 2017-03-03)
DX: I11.0 Hypertensive heart disease with heart failure (principal); J96.01 Acute respiratory failure with hypoxia; E66.2 Morbid (severe) obesity with alveolar hypoventilation; Z68.44 Body mass index [BMI] 60.0-69.9, adult; E11.9 Type 2 diabetes mellitus without complications; I50.21 Acute systolic (congestive) heart failure; E88.81 Metabolic syndrome and other insulin resistance; I27.20 Pulmonary hypertension, unspecified; Z71.3 Dietary counseling and surveillance; Z79.84 Long term (current) use of oral hypoglycemic drugs; Z79.899 Other long term (current) drug therapy
CPT/HCPCS: 36415; 70450; 71020; 71275; 80048; 82550; 82553; 82803; 82962; 83880; 84439; 84443; 84484; 84703; 85025; 85379; 93005; 93010; 93306; 94640; 94660; 94760; 96374; 96375; J0360; J1100; J1815; J1940; Q9967